=== PATIENT | male | born 1960 | race Caucasian/White ===

== ENCOUNTER 2018-12-02 21:20 | Emergency (ER) | payer MEDICARE, OTHER ==
[~2018-12-02] VITALS: Ht 177.8 cm; Wt 77.3 kg
[~2018-12-02 21:20] MED LIST: DSS100 PO; LEVO25TA9 PO; LISI-662 PO; METO-558 PO; OLAN7.5T2 PO; OMEP20 PO; QUET200T PO
[2018-12-02 21:43] VITALS: BP 166/116
[2018-12-02] MEDS ORDERED: RISP2 PO (21:57)
[2018-12-02] MEDS ORDERED: BENZ1TAB10 PO (21:57)
[2018-12-02] MEDS ORDERED: CITA-106 PO (21:57)
[2018-12-02] MEDS ORDERED: RANI150T7 PO (21:57)
[2018-12-02] MEDS ORDERED: HALO5TAB2 PO (21:57)
[2018-12-02 22:07] LABS: BASOPHILS % (AUTO) 0.4 % (0.0-2.0); EOSINOPHILS % (AUTO) 2.8 % (1.0-6.0); HEMATOCRIT 39.1 % (41-53); HEMOGLOBIN 13.4 g/dL (13.5-17.5); LYMPHOCYTES # (AUTO) 2.3 K/uL (1.0-4.8); LYMPHOCYTES % (AUTO) 23.7 % (22.0-44.0); MEAN CORPUSCULAR HEMOGLOBIN 30.1 pg (26.0-34.0); MEAN CORPUSCULAR HGB CONC 34.2 G/dL (31.0-37.0); MEAN CORPUSCULAR VOLUME 88 fL (80-100); MONOCYTES # (AUTO) 1.4 K/uL (0.1-1.0); MONOCYTES % (AUTO) 14.8 % (2.0-9.0); NEUTROPHILS # (AUTO) 5.7 K/uL (1.8-7.7); NEUTROPHILS % (AUTO) 58.3 % (40.0-70.0); PLATELET COUNT (AUTO) 338 K/uL (150-450); RED BLOOD CELL COUNT(AUTO) 4.44 MIL/uL (4.50-5.90); RED CELL DISTRIBUTION WIDTH 14.9 % (11.5-14.5)
[2018-12-02 22:11] LABS: APPEARANCE,URINE CLEAR (CLEAR); BILIRUBIN,URINE NEGATIVE (NEGATIVE); GLUCOSE, URINE (UA) NEGATIVE (NEGATIVE); KETONES,URINE NEGATIVE (NEGATIVE); LEUKOCYTE ESTERASE ,URINE NEGATIVE (NEGATIVE); NITRATE,URINE NEGATIVE (NEGATIVE); OCCULT BLOOD,URINE TRACE (NEGATIVE); PROTEIN,URINE NEGATIVE (NEGATIVE); UROBILINOGEN,URINE 0.2 mg/dL (<=1.0)
[2018-12-02 22:19] LABS: ANION GAP 6 mmol/L (8-16); CALCIUM, TOTAL 8.7 mg/dL (8.8-10.5); CARBON DIOXIDE 31 mmol/L (22-29); CHLORIDE 90 mmol/L (98-107); CREATININE 0.74 mg/dL (0.60-1.30); GLOMERULAR FILTR. RATE CALC > 60 mL/min (>60); GLUCOSE,RANDOM 89 mg/dL (70-110); POTASSIUM 4.4 mmol/L (3.5-5.1); SODIUM SERUM 127 mmol/L (136-145); UREA NITROGEN, BLOOD 11 mg/dL (7-18)
[2018-12-02 22:19] LABS: AMPHET/METH SCREEN,URINE NEGATIVE (NEGATIVE); BACTERIA,URINE Rare /HPF (None Seen); BARBITURATE SCREEN, URINE NEGATIVE (NEGATIVE); BENZODIAZEPINES SCREEN,URINE NEGATIVE (NEGATIVE); CANNABINOID SCREEN,URINE NEGATIVE (NEGATIVE); COCAINE SCREEN,URINE NEGATIVE (NEGATIVE); METHADONE SCREEN, URINE NEGATIVE (NEGATIVE); OPIATE SCREEN,URINE NEGATIVE (NEGATIVE); SQUAMOUS EPITHELIAL CELL,UR Few /LPF (None Seen); WBC,URINE 0-2 /HPF (0-5)
[2018-12-02 22:21] LABS: PHENCYCLIDINE SCREEN,URINE NEGATIVE (NEGATIVE)
[2018-12-02 22:35] LABS: ALANINE AMINOTRANSFERASE 50 U/L (12-78); ALBUMIN 3.5 g/dL (3.4-5.0); ALKALINE PHOSPHATASE 81 U/L (46-116); ASPARTATE AMINOTRANSFERASE 75 U/L (15-37); BILIRUBIN,TOTAL 0.4 mg/dL (0.1-1.0); THYROID STIMULATING HORMONE 19.26 uIU/mL (0.36-3.74); TOTAL PROTEIN, SERUM 6.7 g/dL (6.4-8.2)
== END 2018-12-03 01:01 | disposition left against medical advice (07) ==
LOC: EMS 21:21
DX: R44.0 Auditory hallucinations (principal); F41.9 Anxiety disorder, unspecified; F20.9 Schizophrenia, unspecified; J45.909 Unspecified asthma, uncomplicated; F17.210 Nicotine dependence, cigarettes, uncomplicated; Z53.21 Procedure and treatment not carried out due to patient leaving prior to being seen by health care provider
CPT/HCPCS: 36415; 80053; 80307; 81001; 84443; 85025; G0480

== ENCOUNTER 2018-12-26 09:34 | Inpatient (IN) | payer MEDICARE, MEDICAID ==
[~2018-12-26] VITALS: Ht 177.8 cm; Wt 70.8 kg
[~2018-12-26 09:34] MED LIST changes: +BENZ1TAB10 PO; +CITA-106 PO; +HALO5TAB2 PO; +RANI150T7 PO; +RISP2 PO
[2018-12-26 13:15] VITALS: BP 197/110
[2018-12-26] MEDS ORDERED: ZOLPIDEM TARTRATE 10 MG TABLET PO PRN (13:15)
[2018-12-26] MEDS ORDERED: HALOPERIDOL 5 MG TABLET PO PRN (13:15)
[2018-12-26 13:20] VITALS: BP 183/103
[2018-12-26] MEDS ORDERED: METOPROLOL SUCCINATE 25 MG ER TABLET PO ONE (14:00)
[2018-12-26] MEDS ORDERED: LISINOPRIL 10 MG TABLET PO ONE (14:00)
[2018-12-26 15:12] VITALS: BP 170/112
[2018-12-26] MEDS ORDERED: CloNIDine HCL 0.1 MG TABLET PO PRN (15:15)
[2018-12-26] MEDS ORDERED: ACETAMINOPHEN 325 MG TABLET PO PRN (15:15)
[2018-12-26] MEDS ORDERED: DOCUSATE SODIUM 100 MG CAPSULE PO PRN (15:15)
[2018-12-26] MEDS ORDERED: GuaiFENesin/D-METHORPHAN [SUGAR-FREE] 200-20MG/10 ML SYRUP UDCUP PO PRN (15:15)
[2018-12-26] MEDS ORDERED: MAGNESIUM HYDROXIDE SUSPENSION 30 ML UDCUP PO PRN (15:15)
[2018-12-26] MEDS ORDERED: MAG HYDROX/AL HYDROX/SIMETH ES 30 ML SUSPENSION UDCUP PO PRN (15:15)
[2018-12-26] MEDS ORDERED: LOPERAMIDE HCL 2 MG CAPSULE PO PRN (15:15)
[2018-12-26] MEDS ORDERED: PETROLATUM,WHITE 28 GM JELLY TP PRN (15:15)
[2018-12-26] MEDS ORDERED: ALBUTEROL SULFATE HFA 90 MCG/PUFF 8 GM INHALER IH PRN (15:15)
[2018-12-26] MEDS ORDERED: IBUPROFEN 400 MG TABLET PO PRN (15:15)
[2018-12-26] MEDS ORDERED: ONDANSETRON HCL 4 MG TABLET PO PRN (15:15)
[2018-12-26] MEDS ORDERED: NICOTINE 14 MG/24 HOUR PATCH TD PRN (15:15)
[2018-12-26] MEDS: LORazepam 2 MG TABLET PO PRN (16:47)
[2018-12-26 17:21] VITALS: BP 143/98
[2018-12-26 20:10] VITALS: BP 139/89
[2018-12-26] MEDS: METOPROLOL SUCCINATE 50 MG ER TABLET PO SCH (20:11)
[2018-12-27 03:05] VITALS: BP 142/82
[2018-12-27 07:45] VITALS: BP 138/83
[2018-12-27 08:00] VITALS: BP 138/83
[2018-12-27 08:23] LABS: BASOPHILS % (AUTO) 0.6 % (0.0-2.0); EOSINOPHILS % (AUTO) 2.9 % (1.0-6.0); HEMATOCRIT 42.8 % (41-53); HEMOGLOBIN 14.3 g/dL (13.5-17.5); LYMPHOCYTES # (AUTO) 1.7 K/uL (1.0-4.8); LYMPHOCYTES % (AUTO) 21.1 % (22.0-44.0); MEAN CORPUSCULAR HEMOGLOBIN 30.5 pg (26.0-34.0); MEAN CORPUSCULAR HGB CONC 33.4 G/dL (31.0-37.0); MEAN CORPUSCULAR VOLUME 91 fL (80-100); MONOCYTES # (AUTO) 1.3 K/uL (0.1-1.0); MONOCYTES % (AUTO) 16.3 % (2.0-9.0); NEUTROPHILS # (AUTO) 4.8 K/uL (1.8-7.7); NEUTROPHILS % (AUTO) 59.1 % (40.0-70.0); PLATELET COUNT (AUTO) 366 K/uL (150-450); RED BLOOD CELL COUNT(AUTO) 4.69 MIL/uL (4.50-5.90)
[2018-12-27] MEDS: METOPROLOL SUCCINATE 50 MG ER TABLET PO SCH ×2 (08:34→16:16)
[2018-12-27] MEDS: LISINOPRIL 20 MG TABLET PO SCH (08:34)
[2018-12-27 08:37] LABS: HEMOGLOBIN A1C 5.9 % (4.5-6.2)
[2018-12-27 09:21] LABS: ALANINE AMINOTRANSFERASE 31 U/L (12-78); ALBUMIN 3.4 g/dL (3.4-5.0); ALKALINE PHOSPHATASE 92 U/L (46-116); ANION GAP 7 mmol/L (8-16); ASPARTATE AMINOTRANSFERASE 25 U/L (15-37); BILIRUBIN,TOTAL 0.5 mg/dL (0.1-1.0); CALCIUM, TOTAL 9.1 mg/dL (8.8-10.5); CARBON DIOXIDE 28 mmol/L (22-29); CHLORIDE 99 mmol/L (98-107); CHOL/HDL RATIO 2.3 (4.2-7.3); CHOLESTEROL 107 mg/dL (131-200); FREE T4 (FREE THYROXINE) 0.82 ng/dL (0.76-1.46); GLOMERULAR FILTR. RATE CALC > 60 mL/min (>60); GLUCOSE,RANDOM 77 mg/dL (70-110); HDL CHOLESTEROL 47 mg/dL (40-60); LDL CHOL (CALC.) 55 mg/dL (0-130); POTASSIUM 4.3 mmol/L (3.5-5.1); SODIUM SERUM 134 mmol/L (136-145); THYROID STIMULATING HORMONE 21.18 uIU/mL (0.36-3.74); TRIGLYCERIDES 23 mg/dL (15-150); UREA NITROGEN, BLOOD 11 mg/dL (7-18)
[2018-12-27] MEDS ORDERED: RANI150T7 PO (10:33)
[2018-12-27] MEDS: HALOPERIDOL 5 MG TABLET PO SCH ×2 (12:30→16:16)
[2018-12-27] MEDS: RANITIDINE HCL 150 MG TABLET PO SCH (16:16)
[2018-12-27 16:28] VITALS: BP 126/88
[2018-12-27] MEDS ORDERED: RANITIDINE HCL 150 MG TABLET PO SCH ×2 (17:00)
[2018-12-28 01:35] VITALS: BP 153/97
[2018-12-28] MEDS: LORazepam 2 MG TABLET PO PRN (01:37)
[2018-12-28] MEDS: LEVOTHYROXINE SODIUM 75 MCG TABLET PO SCH (06:51)
[2018-12-28] MEDS: HALOPERIDOL 5 MG TABLET PO SCH ×3 (08:00→16:22)
[2018-12-28] MEDS: OMEPRAZOLE 20 MG CAPSULE PO SCH (08:00)
[2018-12-28] MEDS: METOPROLOL SUCCINATE 50 MG ER TABLET PO SCH ×2 (08:00→16:22)
[2018-12-28] MEDS: RANITIDINE HCL 150 MG TABLET PO SCH ×2 (08:00→16:22)
[2018-12-28] MEDS: LISINOPRIL 20 MG TABLET PO SCH (08:00)
[2018-12-28 08:19] VITALS: BP 137/63
[2018-12-28 16:01] VITALS: BP 142/83
[2018-12-29 06:32] VITALS: BP 153/80
[2018-12-29] MEDS: LEVOTHYROXINE SODIUM 75 MCG TABLET PO SCH (06:50)
[2018-12-29 08:14] LABS: AMPHET/METH SCREEN,URINE NEGATIVE (NEGATIVE); BARBITURATE SCREEN, URINE NEGATIVE (NEGATIVE); BENZODIAZEPINES SCREEN,URINE NEGATIVE (NEGATIVE); CANNABINOID SCREEN,URINE NEGATIVE (NEGATIVE); COCAINE SCREEN,URINE NEGATIVE (NEGATIVE); METHADONE SCREEN, URINE NEGATIVE (NEGATIVE); OPIATE SCREEN,URINE NEGATIVE (NEGATIVE)
[2018-12-29 08:18] LABS: PHENCYCLIDINE SCREEN,URINE NEGATIVE (NEGATIVE)
[2018-12-29 08:19] LABS: APPEARANCE,URINE CLEAR (CLEAR); BILIRUBIN,URINE NEGATIVE (NEGATIVE); GLUCOSE, URINE (UA) NEGATIVE (NEGATIVE); KETONES,URINE NEGATIVE (NEGATIVE); LEUKOCYTE ESTERASE ,URINE NEGATIVE (NEGATIVE); NITRATE,URINE NEGATIVE (NEGATIVE); OCCULT BLOOD,URINE NEGATIVE (NEGATIVE); PH,URINE 6.5 (5.0-8.0); PROTEIN,URINE NEGATIVE (NEGATIVE); UROBILINOGEN,URINE 0.2 mg/dL (<=1.0)
[2018-12-29] MEDS: LISINOPRIL 20 MG TABLET PO SCH (08:20)
[2018-12-29] MEDS: HALOPERIDOL 5 MG TABLET PO SCH ×3 (08:20→17:04)
[2018-12-29] MEDS: RANITIDINE HCL 150 MG TABLET PO SCH ×2 (08:20→17:04)
[2018-12-29] MEDS: OMEPRAZOLE 20 MG CAPSULE PO SCH (08:20)
[2018-12-29] MEDS: METOPROLOL SUCCINATE 50 MG ER TABLET PO SCH ×2 (08:20→17:04)
[2018-12-29 08:33] VITALS: BP 120/80
[2018-12-29 16:35] VITALS: BP 140/93
[2018-12-29 17:04] LABS: GLUCOMETER DEV NAME(LOC) BV2S.; GLUCOSE,POINT OF CARE 174 MG/DL (70-110)
[2018-12-30 00:14] VITALS: BP 142/87
[2018-12-30] MEDS: LEVOTHYROXINE SODIUM 75 MCG TABLET PO SCH (06:07)
[2018-12-30] MEDS: HALOPERIDOL 5 MG TABLET PO SCH ×3 (08:21→16:11)
[2018-12-30] MEDS: OMEPRAZOLE 20 MG CAPSULE PO SCH (08:21)
[2018-12-30] MEDS: LISINOPRIL 20 MG TABLET PO SCH (08:21)
[2018-12-30] MEDS: RANITIDINE HCL 150 MG TABLET PO SCH ×2 (08:22→16:11)
[2018-12-30] MEDS: METOPROLOL SUCCINATE 50 MG ER TABLET PO SCH ×2 (08:22→16:11)
[2018-12-30 08:24] VITALS: BP 140/82
[2018-12-30 16:08] VITALS: BP 137/84
[2018-12-31 00:02] VITALS: BP 183/99
[2018-12-31 01:11] VITALS: BP 130/84
[2018-12-31] MEDS: LEVOTHYROXINE SODIUM 75 MCG TABLET PO SCH (06:32)
[2018-12-31 08:34] VITALS: BP 134/94
[2018-12-31] MEDS: RANITIDINE HCL 150 MG TABLET PO SCH ×2 (08:34→16:14)
[2018-12-31] MEDS: METOPROLOL SUCCINATE 50 MG ER TABLET PO SCH ×2 (08:34→16:14)
[2018-12-31] MEDS: LISINOPRIL 20 MG TABLET PO SCH (08:35)
[2018-12-31] MEDS: HALOPERIDOL 5 MG TABLET PO SCH ×3 (08:35→16:14)
[2018-12-31] MEDS: OMEPRAZOLE 20 MG CAPSULE PO SCH (08:35)
[2018-12-31 16:22] VITALS: BP 120/76
[2019-01-01 01:03] VITALS: BP 139/90
[2019-01-01] MEDS: LEVOTHYROXINE SODIUM 75 MCG TABLET PO SCH (06:22)
[2019-01-01] MEDS: LISINOPRIL 20 MG TABLET PO SCH (08:17)
[2019-01-01] MEDS: METOPROLOL SUCCINATE 50 MG ER TABLET PO SCH ×2 (08:17→16:18)
[2019-01-01] MEDS: HALOPERIDOL 5 MG TABLET PO SCH ×3 (08:17→16:18)
[2019-01-01] MEDS: RANITIDINE HCL 150 MG TABLET PO SCH ×2 (08:17→16:18)
[2019-01-01] MEDS: OMEPRAZOLE 20 MG CAPSULE PO SCH (08:17)
[2019-01-01 08:34] VITALS: BP 121/72
[2019-01-01 16:13] VITALS: BP 137/87
[2019-01-02 01:08] VITALS: BP 154/79
[2019-01-02] MEDS: LEVOTHYROXINE SODIUM 75 MCG TABLET PO SCH (06:14)
[2019-01-02 08:37] VITALS: BP 110/74
[2019-01-02] MEDS: HALOPERIDOL 5 MG TABLET PO SCH ×3 (08:43→16:44)
[2019-01-02] MEDS: METOPROLOL SUCCINATE 50 MG ER TABLET PO SCH ×2 (08:43→16:44)
[2019-01-02] MEDS: OMEPRAZOLE 20 MG CAPSULE PO SCH (08:43)
[2019-01-02] MEDS: LISINOPRIL 20 MG TABLET PO SCH (08:43)
[2019-01-02] MEDS: RANITIDINE HCL 150 MG TABLET PO SCH ×2 (08:43→16:50)
[2019-01-02 16:00] VITALS: BP 136/85
[2019-01-03 01:12] VITALS: BP 134/75
[2019-01-03] MEDS: LEVOTHYROXINE SODIUM 75 MCG TABLET PO SCH (07:05)
[2019-01-03 08:10] VITALS: BP 127/71
[2019-01-03] MEDS: METOPROLOL SUCCINATE 50 MG ER TABLET PO SCH ×2 (08:31→16:58)
[2019-01-03 08:32] LABS: ANION GAP 2 mmol/L (8-16); CALCIUM, TOTAL 9.2 mg/dL (8.8-10.5); CARBON DIOXIDE 31 mmol/L (22-29); CHLORIDE 96 mmol/L (98-107); CREATININE 0.89 mg/dL (0.60-1.30); GLOMERULAR FILTR. RATE CALC > 60 mL/min (>60); GLUCOSE,RANDOM 79 mg/dL (70-110); POTASSIUM 5.1 mmol/L (3.5-5.1); SODIUM SERUM 129 mmol/L (136-145); THYROID STIMULATING HORMONE 11.75 uIU/mL (0.36-3.74); UREA NITROGEN, BLOOD 13 mg/dL (7-18)
[2019-01-03] MEDS: LISINOPRIL 20 MG TABLET PO SCH (08:32)
[2019-01-03] MEDS: RANITIDINE HCL 150 MG TABLET PO SCH ×2 (08:32→16:58)
[2019-01-03] MEDS: OMEPRAZOLE 20 MG CAPSULE PO SCH (08:32)
[2019-01-03] MEDS: HALOPERIDOL 5 MG TABLET PO SCH ×3 (08:32→16:58)
[2019-01-03] MEDS ORDERED: HALOPERIDOL DECANOATE 100 MG/ML VIAL IM SCH (13:00)
[2019-01-03 16:01] VITALS: BP 137/62
[2019-01-04 00:14] VITALS: BP 139/66
[2019-01-04] MEDS: LEVOTHYROXINE SODIUM 75 MCG TABLET PO SCH (06:39)
[2019-01-04 08:10] VITALS: BP 112/70
[2019-01-04] MEDS: METOPROLOL SUCCINATE 50 MG ER TABLET PO SCH ×2 (08:13→16:10)
[2019-01-04] MEDS: HALOPERIDOL 5 MG TABLET PO SCH ×3 (08:13→16:10)
[2019-01-04] MEDS: RANITIDINE HCL 150 MG TABLET PO SCH ×2 (08:13→16:10)
[2019-01-04] MEDS: OMEPRAZOLE 20 MG CAPSULE PO SCH (08:13)
[2019-01-04] MEDS: LISINOPRIL 20 MG TABLET PO SCH (08:13)
[2019-01-04] MEDS ORDERED: HALO100V4 IM (10:17)
[2019-01-04] MEDS ORDERED: HALO5TAB2 PO (10:17)
[2019-01-04 16:23] VITALS: BP 140/94
== END 2019-01-04 18:50 | disposition home or self-care (01) | DRG 885 ==
LOC: B2S 13:10
PROVIDERS: ADMIT Psychiatry & Neurology Child & Adolescent Psychiatry; ATTEND Psychiatry & Neurology Child & Adolescent Psychiatry
DX: F20.0 Paranoid schizophrenia (principal); E87.1 Hypo-osmolality and hyponatremia; I10 Essential (primary) hypertension; E03.9 Hypothyroidism, unspecified; K21.9 Gastro-esophageal reflux disease without esophagitis; K59.00 Constipation, unspecified
CPT/HCPCS: 80307; 83036; 84439; 84443; J1631